=== PATIENT | male | born 1970 | race Caucasian/White ===

== ENCOUNTER 2019-07-06 16:58 | Emergency (ER) | payer SELFPAY ==
[~2019-07-06] VITALS: Ht 160 cm; Wt 72.6 kg
--- NOTE | 2019-07-06 19:15 | NUR ---
PT SLEEPING ON GURNEY. RESP EVEN AND UNLABORED. MIRANDA.
[2019-07-06 20:48] VITALS: BP 105/63
--- NOTE | 2019-07-06 20:48 | NUR ---
PT SLEEPING ON MARIEVANDANA. MIRANDA.
== END 2019-07-06 21:19 | disposition home or self-care (01) ==
LOC: ED 21:13
DX: F10.120 Alcohol abuse with intoxication, uncomplicated (principal); Y90.9 Presence of alcohol in blood, level not specified
CPT/HCPCS: 99285